=== PATIENT | male | born 2000 | race Caucasian/White ===

== ENCOUNTER 2020-11-17 09:37 | Outpatient (REF) | payer MEDICAID, SELFPAY | END 2020-11-17 09:38 | disposition home or self-care (01) | LOC: HO.LAB 09:37 | PROVIDERS: Visit Provider Internal Medicine | DX: Z20.822 Contact with and (suspected) exposure to COVID-19 (principal) | CPT/HCPCS: 36415; C9803; U0003 ==

== ENCOUNTER 2020-11-26 06:52 | Outpatient (REF) | payer MEDICAID, SELFPAY | END 2020-11-26 06:53 | disposition home or self-care (01) | LOC: HO.LAB 06:52 | PROVIDERS: Visit Provider Internal Medicine | DX: Z20.822 Contact with and (suspected) exposure to COVID-19 (principal) | CPT/HCPCS: 36415; C9803; U0003; U0005 ==

== ENCOUNTER 2021-03-09 07:37 | Emergency (ER) | payer MEDICAID, SELFPAY ==
[2021-03-09 07:40] VITALS: BP 99/65; PULSE 99; RESP 18; TEMP 36.8; O2SAT 98; BMI 24.3
--- NOTE | 2021-03-09 08:03 | ED_ITS ---
HPI - SOB/Dyspnea General Chief Complaint: Dyspnea Stated Complaint: ASTHMA Time Seen by Provider: 03/09/21 07:51 Source: patient Mode of arrival: ambulatory Limitations: no limitations History of Present Illness HPI Narrative: 21-year-old male who presents emergency department for evaluation of shortness of breath and asthma exacerbation. The patient states that he has asthma that often flares up during the spring when there is high pollen. He states for the last 2 weeks his asthma is gotten worse. He states he has had shortness of breath, wheezing and a cough. He states the cough is persistent and nonproductive. He is also experiencing bilateral lower chest pain which is worse with breathing, sharp and 5/10 at its worst. He denied fever, chills, myalgias, arthralgias. The patient states that he had a COVID-19 infection in October of 2020. He states that he received his 1st [employer] COVID-19 vaccination 1 week prior to evaluation. Related Data Previous Rx's Medication Instructions Recorded montelukast [Singulair] 10 mg PO BEDTIME 10 Days #10 tab 03/09/21 prednisone 60 mg PO DAILY 7 Days #21 tab 03/09/21 Allergies Allergy/AdvReac Type Severity Reaction Status Date / Time Penicillins [PENICILLINS] Allergy Intermediate HIVES Unverified 07/12/20 17:04 penicillin V Allergy Unknown Verified 06/25/16 00:00 Review of Systems Review of Systems: Yes all other systems are reviewed and are negative [facility] Past Medical History [facility] Narrative: Patient has a history of asthma. Denies tobacco, alcohol and drug use. Medical History Asthma Social History Social History Alcohol intake: never Smoking Status: Never smoker Use of substances other than those prescribed or required for medical reasons: No Advance Directives: Yes Advance Directives Information Provided: Yes Advance Directives on File: No Physical Exam Vital Signs: Vital Signs: Last Vital Signs Temp 98.2 F 03/09/21 07:40 Pulse 99 03/09/21 07:40 Resp 18 03/09/21 07:40 BP 99/65 03/09/21 07:40 Pulse Ox 98 03/09/21 07:40 Body Mass Index 24.3 Const: General: cooperative and healthy appearing Orientation/consciousness: oriented to person and oriented to place Limitations: no limitations HENMT: Head: Yes normal to inspection, Yes normocephalic and Yes atraumatic Ears: external ears normal General nose exam: Normal external nose present Face and sinus: Yes normal facial exam Mouth: Normal oral and palatal mucosa present Throat: Yes posterior oropharynx normal Eyes: Periorbital: periorbital findings normal Eyelids: Yes eyelids normal Conjunctivae: conjunctivae normal Sclerae: sclerae normal Corneas: corneas normal Pupils: Equal, round and reactive pupils present Direct Ophthalmoscopy: normal light reflex Neck: Neck: Yes full ROM, Yes no lymphadenopathy, Yes no meningeal signs, Yes trachea midline and Yes supple Chest: Chest palpation & inspection: normal inspection of the chest and normal palpation of entire chest wall Resp: Effort & Inspection: normal respiratory effort and able to speak in complete sentences Auscultation: wheezes (Mild diffuse) Cardio: Rate: regular rate Rhythm: regular rhythm Heart sounds: S1 normal heart sound present, S2 normal heart sound present and no murmurs GI: Inspection: Yes normal to inspection Palpation (GI): Soft to palpation, nontender, no guarding, not rigid and No hepatosplenomegaly present : General: Yes no CVA tenderness Back/Spine/Pelvis: Back: no CVA tenderness Cervical Spine: normal cervical lordosis Thoracic/Lumbar Spine: thoracic and lumbar spine normal to inspection Skin: Lesions: no lesions Rashes: no rashes Wounds: no wounds Neuro: General: oriented to person, oriented to place and no meningeal signs Cranial nerves: Yes Equal, round and reactive pupils present Cognition (Neuro): normal cognition Motor exam (neuro): 5/5 motor strength present throughout Extrem: General: Yes normal to inspection and Yes full ROM Psych: Appearance: well kempt Mental Status: mental status grossly normal Speech and movement: Normal speech and movement present Affect: normal affect Attitude: cooperative Thought process: Normal thought process present Thought content: Normal thought content present Course Course Course Narrative: 21-year-old male with history of asthma who presents emergency department for evaluation of 2 weeks of shortness of breath, wheezing, pleuritic chest pain and nonproductive cough. Vital signs were stable. Lung exam revealed diffuse wheezing with good inspiratory and expiratory flow. Patient's presentation is consistent with an asthma exacerbation. Patient states that in the past he has improved with Singulair and prednisone. Patient was prescribed Singulair 10 mg at night for 10 days. He was also given a prescription for prednisone 60 mg once a day for 1 week. He was advised to continue using his albuterol as prescribed by his doctor and return to the emergency department if his symptoms get worse or if he develops any new symptoms that are concerning to him. Discharge Plan Discharge Clinical Impression: Asthma with exacerbation Qualifiers: Asthma severity: moderate Asthma persistence: persistent Qualified Code(s): J45.41 - Moderate persistent asthma with (acute) exacerbation Patient Disposition: Home, Self-Care Instructions: Asthma (ED) Additional Instructions: Continue using your albuterol medications as prescribed by your doctor. Take prednisone 20 mg pills, 3 pills once a day for 7 days. Take Singulair 10 mg pills, 1 pill at night for 10 days. Follow-up with your doctor in 2 days. Please return to the emergency department if your symptoms get worse or if you develop any symptoms that are concerning to you. Prescriptions: New prednisone 20 mg tablet 60 mg PO DAILY 7 Days Qty: 21 RF: 0 montelukast [Singulair] 10 mg tablet 10 mg PO BEDTIME 10 Days Qty: 10 RF: 0
== END 2021-03-09 08:11 | disposition home or self-care (01) ==
PROVIDERS: Emergency Provider Emergency Medicine Emergency Medical Services
DX: J45.41 Moderate persistent asthma with (acute) exacerbation (principal); Z79.899 Other long term (current) drug therapy
CPT/HCPCS: 99284

== ENCOUNTER 2021-10-09 09:55 | Outpatient (REF) | payer MEDICAID, SELFPAY ==
[2021-10-09 10:30] LABS: COVID-19 Test Negative (Negative); IDNOW Serial# 16C4AD1C
== END 2021-10-09 09:56 | disposition home or self-care (01) ==
LOC: HO.LAB 09:55
PROVIDERS: Visit Provider Internal Medicine
DX: Z20.822 Contact with and (suspected) exposure to COVID-19 (principal)
CPT/HCPCS: 36415; 87635; C9803

== ENCOUNTER 2025-01-24 12:09 | Emergency (ER) | payer OTHER, SELFPAY ==
[2025-01-24 12:14] VITALS: BP 104/58; PULSE 98; RESP 18; TEMP 36.8; O2SAT 99; BMI 20.8
--- NOTE | 2025-01-24 12:15 | ED.NAVMDI ---
HPI - Nausea/Vomiting/Diarrhea General Chief complaint: Abdominal Pain Stated complaint: Nausea, vomiting Time Seen by Provider: 01/24/25 16:38 Source: patient Mode of arrival: ambulatory Limitations: no limitations History of Present Illness ED Provider: ERLIN FLORES Narrative: 25 yo male with no PMH here with c/o starting with n/v/d and cramps after sick contact while at work today. He has been able to eat and drink while in triage and is feeling better. No fevers, bloody stools, travel, abx use. MD elicited complaint: nausea, vomiting, diarrhea and abdominal pain Onset (ago): day(s) (1) Description of vomiting: food contents and watery Description of diarrhea: watery Associated nausea: Yes Associated abdominal pain: Yes Location of pain: diffuse Radiation: diffuse Pain consistency: intermittent Severity: mild Quality: cramping Exacerbating factors: eating Relieving factors: none Context: sick contacts Associated symptoms: nausea/vomiting Related Data Previous Rx's ?Medication ?Instructions ?Recorded montelukast 10 mg tablet 10 mg PO BEDTIME 10 days #10 tabs 03/09/21 (Singulair) prednisone 20 mg tablet 60 mg (3 x 20 mg) PO DAILY 7 days 03/09/21 #21 tabs ondansetron 4 mg disintegrating 4 mg PO Q8H PRN nausea and 01/24/25 tablet vomiting #20 tabs Allergies Allergy/AdvReac Type Severity Reaction Status Date / Time Penicillins [PENICILLINS] Allergy Intermediate HIVES Verified 01/24/25 12:18 penicillin V Allergy Unknown Unknown Verified 01/24/25 12:18 Review of Systems Review of Systems: Constitutional : No Weight loss, No Fever, No Chills ENT/Mouth : No sore throat, No Rhinorrhea Eyes: No Swelling, No Redness Cardiovascular : No Chest Pain, No SOB, NoEdema Respiratory : No Cough, No Sputum, No Wheezing Gastrointestinal : Positive Nausea, Positive Vomiting, positive Diarrhea, positive abdominal Pain, No Hematochezia, No Melena Genitourinary : No Dysuria, No Urinary Frequency, No Hematuria, No Urgency Musculoskeletal : No joint pain, No Myalgias, No Joint Swelling Skin : No Skin Lesions, No rash Neuro : No Weakness, No Numbness, No Dizziness, No Headache Psych : No Anxiety/Panic, No Depression All other systems reviewed and are negative. Gastrointestinal: Gastrointestinal: Reports nausea PMFSH Past Medical History Attestation statement: The following information was validated with the patient. Source: old records reviewed Medical History Asthma Social History Social History Alcohol intake: never Smoked in Last 30 Days: Yes Use of substances other than those prescribed or required for medical reasons: No Advance Directives: No Advance Directives Information Provided: No Do you have a plan to hurt others: No Plan Physical Exam Vital Signs: Vital Signs: Last Vital Signs Temp 98.8 F 01/24/25 16:39 Pulse 18 L 01/24/25 16:39 Resp 16 01/24/25 16:39 BP 98/68 01/24/25 16:39 Pulse Ox 99 01/24/25 16:39 O2 Del Method Room Air 01/24/25 16:39 BMI result Body Mass Index 20.8 Appearance: Alert. Oriented X3. No acute distress. Eyes: Pupils equal, round and reactive to light. ENT: Pharynx normal. Neck: Normal inspection. Neck supple. CVS: Normal heart rate and rhythm. Pulses normal. Respiratory: No respiratory distress. Breath sounds normal. Abdomen: Soft and nontender. Skin: Skin warm and dry. Normal skin color. Normal skin turgor. Extremities: No lower extremity edema. No calf ttp Neuro: Oriented X 3. No motor deficit. No sensory deficit. CN2-12 intact Course Course Course Narrative: This is an RME: Additional HPI, ROS, PE not included below will be deferred to primary provider. RME assessment and note performed by: Cris Hill PA-C This is a 61-[id number]-male, with a hx of asthma, who presents to the ER with complaints of nausea and vomiting x 2 days. Reporting epigastric pain. Reports dark vomit. Also endorsing diarrhea, dark brown, no bloody or black stool. +Marijuana use. Reporting sick contacts at home with similar symptoms. Plan: Labs, Viral swabs, further ER eval needed. Medical Decision Making Medical Decision Making MDM Narrative: 25 yo male with PMH of asthma here with resolved n/v/d and cramps after sick contacts, no fevers or blood stools he has no abdominal ttp on exam and is tolerating PO at this time labs, zofran and PO challenge. No concern for appendicitis or biliary colic Differential Diagnosis Differential Diagnoses: The differential diagnosis associated with the presentation includes viral syndrome, dehydration, no pain to suggest appendicitis Admission/Observation Consideration of admission/observation: Escalation of care including admission/observation considered tolerating PO feels much better Lab Data MDM Lab Attestation statement: I reviewed the patient's lab results. WBC count due to vomiting 01/24/25 12:43 01/24/25 13:14 Labs: Lab Results 01/24/25 01/24/25 Range/Units 12:43 13:14 WBC 16.8 H (4.8-10.8) X10*3/uL RBC 5.29 (4.60-5.80) X10*6/uL Hgb 16.4 (14.0-18.0) g/dl Hct 45.6 (42.0-52.0) % MCV 86.2 (80.0-98.0) fL MCH 31.0 (27.0-33.0) pg MCHC 36.0 (31.0-36.0) g/dl RDW 12.4 (11.0-16.0) % Plt Count 225 (160-400) X10*3/uL MPV 10.8 (9.4-12.4) fL Immature Gran % (Auto) 0.4 (0.0-0.4) % Neut % (Auto) 91.1 H (45-73) % Lymph % (Auto) 1.2 L (20-40) % [place] % (Auto) 6.3 (2-11) % Eos % (Auto) 0.7 (0-4) % Baso % (Auto) 0.3 (0-2) % Lymph # (Auto) 0.2 L (1.2-4.9) X10*3/uL [place] # (Auto) 1.1 (0.1-1.2) X10*3/uL Eos # (Auto) 0.1 (0.0-0.4) X10*3/uL Baso # (Auto) 0.1 (0.0-0.2) X10*3/uL Abs Immat Gran (auto) 0.06 H (0.00-0.03) X10*3/uL Absolute Neuts (auto) 15.3 H (2.0-8.3) x10*3/uL Absolute Nucleated RBC 0.000 (0.0-0.012) X10*3/uL Nucleated RBC % (auto) 0.0 (0.0-0.2) /100WBC Smear Tech's Comments VERIFIED Sodium 138 (135-145) mmol/L Potassium 4.1 (3.3-5.1) mmol/L Chloride 107 (96-108) mmol/L Carbon Dioxide 24 (22-29) mmol/L Anion Gap 11 L (12-20) BUN 22 H (9-16) mg/dL Creatinine 0.84 (0.5-1.4) mg/dL Estim Creat Clear Calc 125.0 Estimated GFR > 60 Random Glucose 108 (60-115) mg/dL Calcium 9.5 (8.4-10.2) mg/dL Magnesium 1.6 (1.6-2.6) mg/dL Total Bilirubin 1.0 (0.0-1.0) mg/dL Direct Bilirubin 0.4 (0.0-0.5) mg/dL AST 33 (5-37) U/L ALT 33 (0-40) U/L Alkaline Phosphatase 69 (39-117) U/L Total Protein 7.5 (6.5-8.0) g/dL Albumin 4.6 (3.5-5.0) g/dL Lipase 13 (8-78) U/L Influenza Type A (PCR) NEGATIVE (Negative) Influenza Type B (PCR) NEGATIVE (Negative) RSV RNA Qual (PCR) NEGATIVE (Negative) SARS-CoV-2 RNA (RT-PCR) NEGATIVE (Negative) External Record Review External record reviewed: Outpatient record Prescription Management I considered prescription management with: Other Discharge Plan Discharge Clinical Impression: Acute nausea with nonbilious vomiting Patient Disposition: Home, Self-Care Instructions: Acute Nausea and Vomiting (ED) Additional Instructions: rest and stay hydrated bland diet bananas rice apple sauce and toast return for worsening symptoms, pain, fevers, bloody stools unable to eat or drink or any other concerns. Prescriptions: New ondansetron 4 mg tablet,disintegrating 4 mg PO Q8H PRN (Reason: nausea and vomiting) Qty: 20 0RF No Action prednisone 20 mg tablet 60 mg PO DAILY 7 Days Qty: 21 0RF montelukast [Singulair] 10 mg tablet 10 mg PO BEDTIME 10 Days Qty: 10 0RF Stand Alone Forms: Work/School Release Print Language: Sinhala
[2025-01-24 12:51] LABS: Basophils Absolute Auto 0.1 X10*3/uL (0.0-0.2); Basophils Percent Auto 0.3 % (0-2); Eosinophils Absolute Auto 0.1 X10*3/uL (0.0-0.4); Eosinophils Percent Auto 0.7 % (0-4); Hematocrit 45.6 % (42.0-52.0); Hemoglobin 16.4 g/dl (14.0-18.0); Imm Gran Abs Auto 0.06 X10*3/uL (0.00-0.03); Imm Gran Pct Auto 0.4 % (0.0-0.4); Lymphocytes Absolute Auto 0.2 X10*3/uL (1.2-4.9); Lymphocytes Percent Auto 1.2 % (20-40); MANUAL DIFF FLAG SCAN; Mean Corpuscular Volume 86.2 fL (80.0-98.0); Mean Platelet Volume 10.8 fL (9.4-12.4); Monocytes Absolute Auto 1.1 X10*3/uL (0.1-1.2); Monocytes Percent Auto 6.3 % (2-11); Neutrophils Absolute Auto 15.3 x10*3/uL (2.0-8.3); Neutrophils Percent Auto 91.1 % (45-73); Platelet Count 225 X10*3/uL (160-400); Red Blood Count 5.29 X10*6/uL (4.60-5.80); Red Cell Distribution Width 12.4 % (11.0-16.0); SCAN SMEAR FLAG 1; White Blood Count 16.8 X10*3/uL (4.8-10.8)
[2025-01-24 13:09] LABS: SLIDE REVIEW VERIFIED
[2025-01-24 13:28] LABS: Influenza A PCR NEGATIVE (Negative); Influenza B PCR NEGATIVE (Negative); Resp Syncy Virus RNA Qual PCR NEGATIVE (Negative); SARS COV2 PCR INHOUSE NEGATIVE (Negative)
[2025-01-24 13:55] LABS: Alanine Aminotransferase 33 U/L (0-40); Albumin Level 4.6 g/dL (3.5-5.0); Alkaline Phosphatase 69 U/L (39-117); Anion Gap 11 (12-20); Aspartate Amino Transferase 33 U/L (5-37); Bilirubin Direct 0.4 mg/dL (0.0-0.5); Blood Urea Nitrogen 22 mg/dL (9-16); Calcium 9.5 mg/dL (8.4-10.2); Carbon Dioxide 24 mmol/L (22-29); Chloride 107 mmol/L (96-108); Estimated Glomerular Filt Rate > 60; Glucose Random 108 mg/dL (60-115); Lipase 13 U/L (8-78); Magnesium 1.6 mg/dL (1.6-2.6); Potassium 4.1 mmol/L (3.3-5.1); Sodium 138 mmol/L (135-145); Total Protein 7.5 g/dL (6.5-8.0)
[2025-01-24 16:39] VITALS: BP 98/68; PULSE 18; RESP 16; TEMP 37.1; O2SAT 99
--- NOTE | 2025-01-24 16:41 | PC.NURSE ---
strong steady gait. moist mm. was able to have electrolyte drink and crackers in WR w/o issue. no nausea.
--- NOTE | 2025-01-24 17:08 | PC.NURSE ---
Passing PO challenge in bed.
[2025-01-24 17:28] VITALS: BP 98/68; PULSE 18; RESP 16; TEMP 37.1; O2SAT 99
--- OUTSIDE RECORDS SUMMARY | 2025-01-24 18:53 | XMS_ITS | Continuity of Care Document ---
Author Organization [facility] Address [address] [place] [id number] Phone Care Team Providers Care Collar Pointer Name Role Phone Provider, [facility] Unavailable Unavailable Advance Directives Directive Yes / No Effective Date File Name No Information Encounters Encounter Description Practice Location Reason(s) For Visit Diagnoses Date Provider Providers Copied on Encounter [facility], [address] [place] [address], [id number], tel:[phone] No Information 3 Provider [facility]. . [facility], [address] [place] [address], [id number], tel:[phone] [facility] Location ROUTINE INFANT OR CHILD HEALTHMENACTRA (MCV4)-NEED FORVARICELLA (VARIVAX)-NEED FOR 2 Provider [facility]. . [facility], [address] [place] [address], [id number], tel:[phone] [facility] Location No Information 2 Provider [facility]. . Family History Family Member Type Diagnosis Age At Onset No Information Immunizations Vaccine Date Status Comments Varicella virus vaccine, kadi e, for subcutaneous use administered Note: [facility] [place] conversion as of 08/28/2013 ; Source: New Immunization Record Meningococcal conjugate vaccine, serogroups A, C, Y and W-135 (tetravalent), for intramuscular use administered Note: [facility] [place] conversion as of 08/28/2013 ; Source: New Immunization Record Payers Payer name Insurance type Covered alliance party ID Authoriza tion(s) No Information Social History Type Description Quantity Date Captured Comments Sex Male Smoking Status No Information Chief Complaint And Reason For Visit No Information History Of Present Illness Encounter Date Complaint History Of Prese nt Illness No Information Instructions Date Instruction Additional Infor mation No Information Assessments Type Assessment Date No Information
== END 2025-01-24 17:35 | disposition home or self-care (01) ==
PROVIDERS: Physician Assistant Medical; Emergency Provider Emergency Medicine
DX: R11.2 Nausea with vomiting, unspecified (principal); J45.909 Unspecified asthma, uncomplicated; Z03.818 Encounter for observation for suspected exposure to other biological agents ruled out
CPT/HCPCS: 0241U; 80048; 80076; 83690; 83735; 85025; 99283; 99284